=== PATIENT | female | born 1955 | race Caucasian/White ===

== ENCOUNTER → 2017-01-04 | Outpatient (CLI) | payer BC, MEDICAID ==
[2017-01-04 17:57] LABS: BASOPHILS % (AUTO) 0.4 %; EOSINOPHILS # (AUTO) 0.1 10^3/uL (0.0-0.7); EOSINOPHILS % (AUTO) 1.5 %; HCT - HEMATOCRIT 43.5 % (37.0-47.0); HGB - HEMOGLOBIN 14.3 g/dL (12.0-16.0); LYMPHOCYTES # (AUTO) 2.2 10^3/uL (1.5-3.5); LYMPHOCYTES % (AUTO) 33.2 %; MEAN CORPUSCULAR HEMOGLOBIN 31.2 pg (27.0-31.0); MEAN CORPUSCULAR HGB CONC 32.9 g/dL (32.0-36.0); MEAN CORPUSCULAR VOLUME 94.9 fL (81.0-99.0); MEAN PLATELET VOLUME 7.7 fL (7.9-10.8); MONOCYTES # (AUTO) 0.7 10^3/uL (0.0-1.0); MONOCYTES % (AUTO) 10.4 %; NEUTROPHILS # (AUTO) 3.6 10^3/uL (1.5-6.6); NEUTROPHILS % (AUTO) 54.5 %; NUCLEATED RED BLOOD CELLS AUTO 0.1 /100WBC; RED BLOOD COUNT 4.59 10^6/uL (4.20-5.40); RED CELL DISTRIBUTION WIDTH 13.1 % (12.0-15.0); UNCORRECTED WHITE BLOOD COUNT 6.7 x10^3/uL; WHITE BLOOD COUNT 6.7 x10^3/uL (4.8-10.8)
[2017-01-04 18:17] LABS: ALBUMIN/GLOBULIN RATIO 1.3 (1.0-2.2); BILIRUBIN,TOTAL 0.6 mg/dL (0.2-1.0); BUN - BLOOD UREA NITROGEN 10 mg/dL (6-20); CALCIUM 9.5 mg/dL (8.5-10.3); CARBON DIOXIDE - CO2 25 mmol/L (21-32); CHLORIDE 105 mmol/L (101-111); CHOL/HDL RATIO 3.1 (<4.4); CHOLESTEROL 193 mg/dL; CREATININE 0.8 mg/dL (0.4-1.0); GFR - MDRD 73 (>89); GLUCOSE 95 mg/dL (70-100); HDL CHOLESTEROL 63 mg/dL; LDL/HDL RATIO 1.6 (<4.4); POTASSIUM 4.1 mmol/L (3.5-5.0); SODIUM 140 mmol/L (135-145); TOTAL PROTEIN 6.8 g/dL (6.7-8.2); TRIGLYCERIDES 151 mg/dL; VLDL CHOLESTEROL 30 mg/dL
[2017-01-04 21:26] LABS: HEMOGLOBIN A1C 0.69 g/dL
== END ==
LOC: LAB.S 09:39
PROVIDERS: ATTEND Nurse Practitioner Family
DX: I10 Essential (primary) hypertension (principal); E78.5 Hyperlipidemia, unspecified; N28.9 Disorder of kidney and ureter, unspecified; R73.01 Impaired fasting glucose
CPT/HCPCS: 36415; 80053; 80061; 83036; 84443; 85025

== ENCOUNTER 2017-02-04 08:52 | Outpatient (CLI) | payer MEDICAID ==
--- NOTE | 2017-02-04 10:52 | Ultrasound Report ---
RIGHT BREAST ULTRASOUND: 02/04/2017 CLINICAL INDICATION: Circumscribed nodule right lower inner quadrant. TECHNIQUE: Real-time scanning was performed with corporate sales representative static images obtained. FINDINGS: Ultrasound of the right lower inner quadrant was performed. At the 4 o'clock position, ap proximately 8 cm from the nipple, there is a circumscribed, hypoechoic nodule, measuring 1.8 x 1.5 x 0.9 cm. It demonstrates posterior acoustic enhancement and no internal vascularity. The imaging chula racteristics are compatible with a fibroadenoma. Options of six-month followup or core needle biopsy were discussed with the patient, and she agreed to six-month followup. 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 RECOMMENDATION: Diagnostic right mammogram and ultrasound in six months, to assure stability. BIRADS CATEGORY 3 - PROBABLE BENIGN FINDINGS. JOB #: [id number] EXT JOB #:[id number]
--- NOTE | 2017-02-04 17:34 | Mammography Report ---
DIGITAL DIAGNOSTIC RIGHT MAMMOGRAM: 02/04/2017 CLINICAL INDICATION: Nodule right lower inner quadrant. COMPARISON: 01/14/2017 TECHNIQUE: Right true lateral and spot compression views. The right breast again demonstrates fatty replacement. The nodular opacity in the right lower inner central breast persists, measuring approximately 2 cm. No associated calcifications are seen. Zac gimenez also refer to right breast ultrasound of the same day. IMPRESSION: PROBABLE BENIGN FINDINGS, WITH A LIKELY FIBROADENOMA ON ULTRASOUND CORRELATING WITH THE MAMMOGRAPHIC ABNORMALITY. RECOMMENDATION: DIAGNOSTIC RIGHT MAMMOGRAM AND ULTRASOUND IN SIX MONTHS. BIRADS CATEGORY: 3, PROBABLE BENIGN FINDINGS. STANDARD QUALIFYING STATEMENTS 1. This examination was reviewed with the aid of Computed-Aided Detection (CAD). 2. A negative or benign imaging report should not delay biopsy if clinically suspicious findings are present. Consider surgical consultation if warranted. More than 5% of cancers are not identified b y imaging. 3. Dense breasts may obscure an underlying neoplasm. :9 JOB #: [id number] EXT JOB #:[id number]
== END 2017-02-04 08:53 | disposition home or self-care (01) ==
LOC: DI 08:52
PROVIDERS: ATTEND Nurse Practitioner Family
DX: N63.14 Unspecified lump in the right breast, lower inner quadrant (principal)
CPT/HCPCS: 76642

== ENCOUNTER 2017-09-07 09:10 | Outpatient (CLI) | payer MEDICAID ==
--- NOTE | 2017-09-07 12:23 | Mammography Report ---
Procedure Date: 09/07/2017 Accession Number: [id number] / [id number] Procedure: RAJESH - Diagnostic Dig RT CPT Code: FULL RESULT: EXAM: UNILATERAL RIGHT MAMMOGRAM AND RIGHT BREAST ULTRASOUND DATE: 09/07/2017 9:42 AM CLINICAL HISTORY: Follow-up probable fibroadenoma. TECHNIQUE: Unilateral right CC, MLO, and true lateral mammographic projections. Real-time scanning by the silk top hat body maker was saved static images reviewed. COMPARISON: 02/04/2017 right breast additional views and right breast ultrasound. FINDINGS: Right mammogram: There are scattered fibroglandular densities. The large nodule, presumed fibroadenoma, in the 4:00 position right breast persists on additional views, unchanged in appearance compared with priors. A second subcentimeter nodular density in the 9:00 position is also unchanged in appearance. Right breast ultrasound: Ultrasound examination of the right breast 4:00 position 8 cm from the nipple shows a stable appearance to the well circumscribed avascular hypoechoic nodule with posterior acoustic enhancement measuring 1.7 x 1.3 x .9 cm. IMPRESSION: Probably benign findings right breast. RECOMMENDATION: Six-month follow-up bilateral mammogram and right breast ultrasound. BIRADS CATEGORY 3: Probably benign STANDARD QUALIFYING STATEMENTS: 1. This examination was reviewed with the aid of Computer-Aided Detection (CAD). 2. A negative or benign imaging report should not delay biopsy if clinically suspicious findings are present. Consider surgical consultation if warrented. More than 5% of cancers are not identified by imaging. 3. Dense breasts may obscure an underlying neoplasm.
== END 2017-09-07 09:11 | disposition home or self-care (01) ==
LOC: DI 09:10
PROVIDERS: ATTEND Nurse Practitioner Family
DX: R92.8 Other abnormal and inconclusive findings on diagnostic imaging of breast (principal); N63.14 Unspecified lump in the right breast, lower inner quadrant
CPT/HCPCS: 76642

== ENCOUNTER 2018-05-16 09:12 | Outpatient (CLI) | payer MEDICAID ==
[2018-05-16 18:35] LABS: BASOPHILS % (AUTO) 0.3 %; EOSINOPHILS # (AUTO) 0.1 10^3/uL (0.0-0.7); EOSINOPHILS % (AUTO) 1.8 %; HGB - HEMOGLOBIN 14.2 g/dL (12.0-16.0); LYMPHOCYTES # (AUTO) 2.1 10^3/uL (1.5-3.5); LYMPHOCYTES % (AUTO) 31.3 %; MEAN CORPUSCULAR HGB CONC 33.3 g/dL (32.0-36.0); MEAN CORPUSCULAR VOLUME 96.1 fL (81.0-99.0); MEAN PLATELET VOLUME 7.6 fL (7.9-10.8); MONOCYTES # (AUTO) 0.7 10^3/uL (0.0-1.0); MONOCYTES % (AUTO) 9.9 %; NEUTROPHILS # (AUTO) 3.8 10^3/uL (1.5-6.6); NEUTROPHILS % (AUTO) 56.7 %; PLT - PLATELET COUNT 281 10^3/uL (130-450); RED BLOOD COUNT 4.45 10^6/uL (4.20-5.40); RED CELL DISTRIBUTION WIDTH 12.7 % (12.0-15.0); WHITE BLOOD COUNT 6.8 x10^3/uL (4.8-10.8)
[2018-05-16 18:49] LABS: ALBUMIN/GLOBULIN RATIO 1.1 (1.0-2.2); ALKALINE PHOSPHATASE 71 IU/L (42-121); ALT ALANINE AMINOTRANSFERASE 28 IU/L (10-60); AST ASPARTATE AMINOTRANSFERASE 33 IU/L (10-42); BILIRUBIN,TOTAL 0.9 mg/dL (0.2-1.0); BUN - BLOOD UREA NITROGEN 16 mg/dL (6-20); CALCIUM 9.1 mg/dL (8.5-10.3); CARBON DIOXIDE - CO2 24 mmol/L (21-32); CHLORIDE 105 mmol/L (101-111); CHOL/HDL RATIO 2.6 (<4.4); CHOLESTEROL 193 mg/dL; CREATININE 0.8 mg/dL (0.4-1.0); GFR - MDRD 72 (>89); GLUCOSE 106 mg/dL (70-100); HDL CHOLESTEROL 74 mg/dL; LDL CHOLESTEROL,CALCULATED 98 mg/dL; LDL/HDL RATIO 1.3 (<4.4); SODIUM 137 mmol/L (135-145); TOTAL PROTEIN 7.5 g/dL (6.7-8.2); VLDL CHOLESTEROL 21 mg/dL
[2018-05-16 20:41] LABS: HB2 TOTAL 15.6 g/dL; HEMOGLOBIN A1C 0.62 g/dL; HEMOGLOBIN A1C % 5.8 % (4.6-6.2)
== END 2018-05-16 09:13 | disposition home or self-care (01) ==
LOC: LAB.F 09:12
PROVIDERS: ATTEND Nurse Practitioner Family
DX: I10 Essential (primary) hypertension (principal); E78.5 Hyperlipidemia, unspecified; R73.01 Impaired fasting glucose; Z12.11 Encounter for screening for malignant neoplasm of colon
CPT/HCPCS: 36415; 80053; 80061; 83036; 83721; 84443; 85025

== ENCOUNTER 2018-05-26 10:35 | Outpatient (CLI) | payer MEDICAID ==
--- NOTE | 2018-05-26 14:34 | Mammography Report ---
Reason: 6 MO F/U - ABN MAMMO Procedure Date: 05/26/2018 Accession Number: [id number] / [id number] Procedure: RAJESH - Diagnostic Dig Bilat CPT Code: FULL RESULT: EXAM: Diagnostic Dig Bilat DATE: 05/26/2018 11:38 AM CLINICAL HISTORY: Diagnostic exam. Follow-up probable fibroadenoma. TECHNIQUE: Bilateral CC, MLO images are obtained. Right laterally exaggerated CC and ML images are obtained. COMPARISON: 09/07/2017 through 01/14/2017. FINDINGS: The breasts demonstrate diffuse fatty replacement bilaterally. The large nodule, presumed fibroadenoma, in the 4:00 position of the right breast is unchanged compared to priors. A second subcentimeter nodular density in the 9:00 position is also unchanged. These findings are therefore probably benign. IMPRESSION: Probable benign findings RECOMMENDATION: Recommend diagnostic right breast mammogram in 6 months. Annual screening mammography of the left breast. BIRADS CATEGORY 3 STANDARD QUALIFYING STATEMENTS: 1. This examination was not reviewed with the aid of Computer-Aided Detection (CAD). 2. A negative or benign imaging report should not delay biopsy if clinically suspicious findings are present. Consider surgical consultation if warrented. More than 5% of cancers are not identified by imaging. 3. Dense breasts may obscure an underlying neoplasm. 4. This examination was reviewed with the aid of 3D imaging (tomography).
== END 2018-05-26 10:36 | disposition home or self-care (01) ==
LOC: DI 10:35
PROVIDERS: ATTEND Nurse Practitioner Family
DX: R92.8 Other abnormal and inconclusive findings on diagnostic imaging of breast (principal)
CPT/HCPCS: 77062; 77066

== ENCOUNTER 2018-09-12 18:50 | Outpatient (CLI) | payer MEDICAID ==
--- NOTE | 2018-09-13 12:42 | Ultrasound Report ---
Reason: CAROTID ARTERY OCCLUSION,HYPERLIPIDEMIA,HTN Procedure Date: 09/12/2018 Accession Number: [id number] / [id number] Procedure: US - Carotid Doppler Complete CPT Code: FULL RESULT: EXAM: BILATERAL CAROTID AND VERTEBRAL ARTERY DUPLEX DOPPLER ULTRASOUND: EXAM DATE: 09/12/2018 07:16 PM CLINICAL HISTORY: Carotid artery occlusion, hyperlipidemia, HTN. COMPARISON: None. TECHNIQUE: Grayscale imaging, color Doppler, and duplex spectral Doppler were used to evaluate the carotid and vertebral arteries bilaterally. Static images were obtained. FINDINGS: A mild amount of echogenic irregular plaque seen throughout the right and left internal carotid systems, most pronounced at the bifurcations and visually less than 50% on grayscale ultrasound. Normal antegrade flow is present in bilateral vertebral arteries. The shadowing plaque occludes focal evaluation, particularly limited to the proximal right internal carotid artery. There is, however, no evidence of tardus parvus flow waveforms downstream of areas with limited visualization and distal ICA waveforms are within normal limits on both sides. VELOCITIES (cm/sec): Right CCA mid: PSV 108.1 cm/sec CCA dist: PSV 74.0 cm/sec ICA prox: PSV 56.2 cm/sec, EDV 18.6 cm/sec ICA mid: PSV 55.1 cm/sec, EDV 16.6 cm/sec ICA dist: PSV 51.3 cm/sec, EDV 18.8 cm/sec ECA: PSV 114.1 cm/sec Vert: PSV 43.5 cm/sec ICA/CCA: 0.5 Left CCA mid: PSV 71.7 cm/sec CCA dist: PSV 77.3 cm/sec ICA prox: PSV 54.4 cm/sec, EDV 19.5 cm/sec ICA mid: PSV 34.4 cm/sec, EDV 13.3 cm/sec ICA dist: PSV 30.5 cm/sec, EDV 12.1 cm/sec ECA: PSV 38.5 cm/sec Vert: PSV 49.6 cm/sec ICA/CCA: 0.7 ICA diameter stenosis: Right: <50% by velocity and <70% by NASCET criteria. Left: <50% by velocity and <70% by NASCET criteria. IMPRESSION: 1. Subjectively mild bilateral carotid artery plaquing. 2. In the right carotid artery there are no elevated carotid artery velocities to suggest hemodynamically significant stenosis. 3. In the left carotid artery there are no elevated carotid artery velocities to suggest hemodynamically significant stenosis. 4. Normal antegrade flow is present in bilateral vertebral arteries. General Recommendations: Stenosis =50% ICA - Follow-up ultrasound 6-12 months Stenosis <50% ICA - High Risk Patient with plaque - Follow-up ultrasound 1-2 years Normal Study but High Risk Patient - Follow-up ultrasound 3-5 years Management recommendations and diagnostic criteria are based on current IAC endorsed standards in Carotid Artery Stenosis: Grayscale and Doppler Ultrasound Diagnosis. Validated velocity measurements with angiographic measurements and velocity criteria are extrapolated from diameter data as defined by the Society of Radiologists in Ultrasound Consensus Conference Radiology 2003; 229;340-346. RADIA
== END 2018-09-12 18:51 | disposition home or self-care (01) ==
LOC: DI 18:50
PROVIDERS: ATTEND Physician Assistant Medical
DX: I65.23 Occlusion and stenosis of bilateral carotid arteries (principal); E78.5 Hyperlipidemia, unspecified; I10 Essential (primary) hypertension
CPT/HCPCS: 93880

== ENCOUNTER 2019-11-14 08:03 | Outpatient (CLI) | payer MEDICAID ==
[2019-11-14 15:41] LABS: BASOPHILS % (AUTO) 0.6 %; EOSINOPHILS # (AUTO) 0.1 10^3/uL (0.0-0.7); EOSINOPHILS % (AUTO) 2.4 %; HGB - HEMOGLOBIN 14.6 g/dL (12.0-16.0); LYMPHOCYTES # (AUTO) 1.9 10^3/uL (1.5-3.5); MEAN CORPUSCULAR HGB CONC 31.9 g/dL (32.0-36.0); MEAN CORPUSCULAR VOLUME 97.2 fL (81.0-99.0); MEAN PLATELET VOLUME 9.7 fL (7.9-10.8); MONOCYTES # (AUTO) 0.5 10^3/uL (0.0-1.0); MONOCYTES % (AUTO) 9.7 %; NEUTROPHILS # (AUTO) 2.9 10^3/uL (1.5-6.6); NEUTROPHILS % (AUTO) 52.9 %; PLT - PLATELET COUNT 263 10^3/uL (130-450); RED BLOOD COUNT 4.71 10^6/uL (4.20-5.40); RED CELL DISTRIBUTION WIDTH 12.4 % (12.0-15.0); WHITE BLOOD COUNT 5.4 x10^3/uL (4.8-10.8)
[2019-11-14 16:03] LABS: ALBUMIN 3.9 g/dL (3.2-5.5); ALBUMIN/GLOBULIN RATIO 1.1 (1.0-2.2); ALKALINE PHOSPHATASE 84 IU/L (42-121); ALT ALANINE AMINOTRANSFERASE 19 IU/L (10-60); AST ASPARTATE AMINOTRANSFERASE 26 IU/L (10-42); BILIRUBIN,TOTAL 0.8 mg/dL (0.2-1.0); BUN - BLOOD UREA NITROGEN 11 mg/dL (6-20); CALCIUM 9.5 mg/dL (8.5-10.3); CARBON DIOXIDE - CO2 25 mmol/L (21-32); CHLORIDE 108 mmol/L (101-111); CHOL/HDL RATIO 2.7 (<4.4); CHOLESTEROL 187 mg/dL; CREATININE 0.9 mg/dL (0.4-1.0); GLUCOSE 111 mg/dL (70-100); HDL CHOLESTEROL 69 mg/dL; LDL CHOLESTEROL,CALCULATED 92 mg/dL; LDL/HDL RATIO 1.3 (<4.4); SODIUM 141 mmol/L (135-145); TOTAL PROTEIN 7.3 g/dL (6.7-8.2); VLDL CHOLESTEROL 26 mg/dL
== END 2019-11-14 08:04 | disposition home or self-care (01) ==
LOC: LAB.S 08:03
PROVIDERS: ATTEND Registered Nurse
DX: I10 Essential (primary) hypertension (principal); N28.9 Disorder of kidney and ureter, unspecified; E78.5 Hyperlipidemia, unspecified; R73.01 Impaired fasting glucose
CPT/HCPCS: 36415; 80053; 80061; 83036; 83721; 84443; 85025

== ENCOUNTER 2020-01-04 12:36 | Outpatient (CLI) | payer MEDICAID ==
--- NOTE | 2020-01-08 16:12 | Mammography Report ---
BILATERAL DIGITAL DIAGNOSTIC MAMMOGRAM 3D/2D: 01/04/2020 CLINICAL: Patient returns for short term follow-up of a probably benign mass in the right breast. Comparison is made to exams dated: 05/26/2018 mammogram, 09/07/2017 mammogram, 09/07/2017 ultrasound, ultrasound, 02/04/2017 mammogram, and 01/14/2017 mammogram - [facility]. There are scattered fibroglandular elements in both breasts. There is a stable oval equal density mass with an indistinct and circumscribed margin in the right br east at 4 o'clock posterior depth. No other significant masses, calcifications, or other findings are seen in either breast. IMPRESSION: INCOMPLETE: NEEDS ADDITIONAL IMAGING EVALUATION The stable oval equal density mass in the right breast is indeterminate. An ultrasound is recommende d. This exam was interpreted at Station ID: [id number]. NOTE: For mammograms, a report in lay terms will be sent to the patient. Approximately 15% of breast malignancies will not be visualized mammographically. In the management of a palpable breast mass, a negative mammogram must not discourage biopsy of a clinically suspicious lesion. Electronically Signed By: Benji pisano/ander:01/04/2020 13:48:07 ACR BI-RADS Category 0: Incomplete 3340F PARENCHYMAL PATTERN: (A) - The breast(s) demonstrate(s) scattered fibroglandular densities. BI-RADS CATEGORY: (0) - 0 Ultrasound [id number] Immediate follow-up LATERALITY: (B)
--- NOTE | 2020-01-08 16:12 | Ultrasound Report ---
LIMITED ULTRASOUND OF RIGHT BREAST AND AXILLA: 01/04/2020 CLINICAL: Patient returns for short term follow-up of a probably benign mass in the right breast. Comparison is made to exams dated: 01/04/2020 mammogram, 05/26/2018 mammogram, 09/07/2017 ultrasound, mammogram, 02/04/2017 ultrasound, and 02/04/2017 mammogram - [facility]. Color flow and real-time ultrasound of the right breast 3 o'clock, and axilla regions were performed on the areas of interest. There is a stable benign 1.3 cm x 0.9 cm x 1.7 cm oval mass with a circumscribed margin in the right breast at 3 o'clock middle depth 8 cm from the nipple. This oval mass is hypoechoic with a well-defi adeola boundary. This correlates with mammography findings. Color flow imaging demonstrates that there is no increase in vascularity. IMPRESSION: BENIGN There is no sonographic evidence of malignancy. The stable 1.3 cm x 0.9 cm x 1.7 cm oval mass in the right breast likely represents a fibroadenoma an d is benign given stability compared to prior studies dating back to 2017. A 1 year screening mammogram is recommended. This exam was interpreted at Station ID: [id number]. Electronically Signed By: Benji Hoff M.D. ddp/:01/04/2020 15:00:30 Ultrasound BI-RADS: 2 Benign BI-RADS CATEGORY: (2) - 2 RECOMMENDATION: (ANNUAL) - Recommend routine annual screening mammography. [id number] 1 year screening LATERALITY: (B)
== END 2020-01-04 12:37 | disposition home or self-care (01) ==
LOC: DI 12:36
PROVIDERS: ATTEND Registered Nurse
DX: R92.8 Other abnormal and inconclusive findings on diagnostic imaging of breast (principal); N63.12 Unspecified lump in the right breast, upper inner quadrant
CPT/HCPCS: 76642; 77066

== ENCOUNTER 2020-12-26 08:23 | Outpatient (CLI) | payer MEDICAID ==
[2020-12-26 14:57] LABS: BASOPHILS % (AUTO) 0.6 %; EOSINOPHILS # (AUTO) 0.2 10^3/uL (0.0-0.7); EOSINOPHILS % (AUTO) 2.3 %; HCT - HEMATOCRIT 43.5 % (37.0-47.0); HGB - HEMOGLOBIN 14.2 g/dL (12.0-16.0); LYMPHOCYTES # (AUTO) 2.2 10^3/uL (1.5-3.5); LYMPHOCYTES % (AUTO) 32.9 %; MEAN CORPUSCULAR HEMOGLOBIN 31.5 pg (27.0-31.0); MEAN CORPUSCULAR HGB CONC 32.6 g/dL (32.0-36.0); MEAN CORPUSCULAR VOLUME 96.5 fL (81.0-99.0); MEAN PLATELET VOLUME 9.3 fL (7.9-10.8); MONOCYTES # (AUTO) 0.7 10^3/uL (0.0-1.0); MONOCYTES % (AUTO) 10.5 %; NEUTROPHILS # (AUTO) 3.5 10^3/uL (1.5-6.6); NEUTROPHILS % (AUTO) 53.4 %; PLT - PLATELET COUNT 301 10^3/uL (130-450); RED BLOOD COUNT 4.51 10^6/uL (4.20-5.40); RED CELL DISTRIBUTION WIDTH 12.3 % (12.0-15.0); WHITE BLOOD COUNT 6.6 x10^3/uL (4.8-10.8)
[2020-12-26 15:27] LABS: CHOL/HDL RATIO 2.6 (<4.4); CHOLESTEROL 187 mg/dL; HDL CHOLESTEROL 71 mg/dL; LDL CHOLESTEROL,CALCULATED 94 mg/dL; LDL/HDL RATIO 1.3 (<4.4); TRIGLYCERIDES 111 mg/dL; VLDL CHOLESTEROL 22 mg/dL
== END 2020-12-26 08:24 | disposition home or self-care (01) ==
LOC: LAB.S 08:23
PROVIDERS: ATTEND Internal Medicine
DX: E78.5 Hyperlipidemia, unspecified (principal); I10 Essential (primary) hypertension; R73.01 Impaired fasting glucose
CPT/HCPCS: 36415; 80061; 83721; 85025

== ENCOUNTER 2021-05-07 08:00 | Outpatient (CLI) | payer MEDICARE, MEDICAID ==
[2021-05-07 15:29] LABS: BASOPHILS % (AUTO) 0.5 %; EOSINOPHILS # (AUTO) 0.2 10^3/uL (0.0-0.7); EOSINOPHILS % (AUTO) 2.5 %; HCT - HEMATOCRIT 42.5 % (37.0-47.0); LYMPHOCYTES # (AUTO) 1.4 10^3/uL (1.5-3.5); LYMPHOCYTES % (AUTO) 21.8 %; MEAN CORPUSCULAR HEMOGLOBIN 31.5 pg (27.0-31.0); MEAN CORPUSCULAR HGB CONC 32.9 g/dL (32.0-36.0); MEAN CORPUSCULAR VOLUME 95.5 fL (81.0-99.0); MEAN PLATELET VOLUME 9.2 fL (7.9-10.8); MONOCYTES # (AUTO) 0.5 10^3/uL (0.0-1.0); MONOCYTES % (AUTO) 7.9 %; NEUTROPHILS # (AUTO) 4.3 10^3/uL (1.5-6.6); PLT - PLATELET COUNT 272 10^3/uL (130-450); RED BLOOD COUNT 4.45 10^6/uL (4.20-5.40); RED CELL DISTRIBUTION WIDTH 12.3 % (12.0-15.0); WHITE BLOOD COUNT 6.4 x10^3/uL (4.8-10.8)
[2021-05-07 15:40] LABS: SLIDE REVIEW? Indicated
[2021-05-07 15:58] LABS: ALBUMIN 3.9 g/dL (3.2-5.5); ALBUMIN/GLOBULIN RATIO 1.2 (1.0-2.2); BILIRUBIN,TOTAL 0.5 mg/dL (0.2-1.0); CALCIUM 9.2 mg/dL (8.5-10.3); CREATININE 0.7 mg/dL (0.4-1.0); POTASSIUM 4.2 mmol/L (3.5-5.0); TOTAL PROTEIN 7.1 g/dL (6.7-8.2)
[2021-05-07 17:16] LABS: DIFFERENTIAL COMMENT MANUAL=AUTO DIFF; PLATELET ESTIMATE, MANUAL NORMAL (130-450,000) (NORMAL); PLATELET MORPHOLOGY NORMAL APPEARANCE (NORMAL); RBC MORPHOLOGY (MULTIPLE) NORMAL APPEARANCE (NORMAL); WBC MORPHOLOGY (MULTIPLE) NORMAL APPEARANCE (NORMAL)
[2021-05-07 20:17] LABS: ESTIMATED AVERAGE GLUCOSE 126 mg/dL (70-100)
== END 2021-05-07 23:59 ==
LOC: LAB.S 08:00
PROVIDERS: ATTEND Physician Assistant Medical
DX: K52.9 Noninfective gastroenteritis and colitis, unspecified (principal); R11.10 Vomiting, unspecified; R73.03 Prediabetes; R73.01 Impaired fasting glucose; I10 Essential (primary) hypertension; Z20.822 Contact with and (suspected) exposure to COVID-19
CPT/HCPCS: 36415; 80053; 83036; 85025; U0004

== ENCOUNTER 2022-05-11 07:30 | Outpatient (CLI) | payer MEDICARE, MEDICAID ==
[2022-05-11 14:25] LABS: BASOPHILS % (AUTO) 0.5 %; EOSINOPHILS # (AUTO) 0.1 10^3/uL (0.0-0.7); EOSINOPHILS % (AUTO) 2.3 %; HGB - HEMOGLOBIN 13.1 g/dL (12.0-16.0); LYMPHOCYTES # (AUTO) 2.2 10^3/uL (1.5-3.5); LYMPHOCYTES % (AUTO) 38.5 %; MEAN CORPUSCULAR HEMOGLOBIN 31.1 pg (27.0-31.0); MEAN CORPUSCULAR VOLUME 97.4 fL (81.0-99.0); MEAN PLATELET VOLUME 9.1 fL (7.9-10.8); MONOCYTES # (AUTO) 0.6 10^3/uL (0.0-1.0); MONOCYTES % (AUTO) 11.1 %; NEUTROPHILS # (AUTO) 2.7 10^3/uL (1.5-6.6); NEUTROPHILS % (AUTO) 47.4 %; PLT - PLATELET COUNT 256 10^3/uL (130-450); RED BLOOD COUNT 4.21 10^6/uL (4.20-5.40); RED CELL DISTRIBUTION WIDTH 12.4 % (12.0-15.0); WHITE BLOOD COUNT 5.7 x10^3/uL (4.8-10.8)
[2022-05-11 15:30] LABS: THYROID STIMULATING HORMONE 1.93 uIU/mL (0.34-5.60)
[2022-05-11 15:37] LABS: ALBUMIN 3.7 g/dL (3.2-5.5); ALBUMIN/GLOBULIN RATIO 1.2 (1.0-2.2); ALKALINE PHOSPHATASE 72 IU/L (42-121); ALT ALANINE AMINOTRANSFERASE 18 IU/L (10-60); AST ASPARTATE AMINOTRANSFERASE 24 IU/L (10-42); BILIRUBIN,TOTAL 0.5 mg/dL (0.2-1.0); BUN - BLOOD UREA NITROGEN 11 mg/dL (6-20); CALCIUM 10.3 mg/dL (8.5-10.3); CARBON DIOXIDE - CO2 26 mmol/L (21-32); CHLORIDE 106 mmol/L (101-111); CHOL/HDL RATIO 2.7 (<4.4); CHOLESTEROL 199 mg/dL; CREATININE 0.7 mg/dL (0.4-1.0); GFR - MDRD 83 (>89); GLUCOSE 111 mg/dL (70-100); HDL CHOLESTEROL 75 mg/dL; LDL CHOLESTEROL,CALCULATED 108 mg/dL; LDL/HDL RATIO 1.4 (<4.4); POTASSIUM 4.6 mmol/L (3.5-5.0); SODIUM 141 mmol/L (135-145); TOTAL PROTEIN 6.9 g/dL (6.7-8.2); TRIGLYCERIDES 78 mg/dL; VLDL CHOLESTEROL 16 mg/dL
== END 2022-05-11 07:31 | disposition home or self-care (01) ==
LOC: LAB.S 07:30
PROVIDERS: ATTEND Registered Nurse
DX: I10 Essential (primary) hypertension (principal); N28.9 Disorder of kidney and ureter, unspecified; R73.01 Impaired fasting glucose; E78.5 Hyperlipidemia, unspecified; Z13.29 Encounter for screening for other suspected endocrine disorder
CPT/HCPCS: 36415; 80053; 80061; 83721; 84443; 85025

== ENCOUNTER 2023-06-16 08:32 | Outpatient (CLI) | payer MEDICARE, MEDICAID ==
[2023-06-16 14:42] LABS: BASOPHILS % (AUTO) 0.4 %; EOSINOPHILS # (AUTO) 0.2 10^3/uL (0.0-0.7); EOSINOPHILS % (AUTO) 2.6 %; HCT - HEMATOCRIT 41.5 % (37.0-47.0); HGB - HEMOGLOBIN 13.1 g/dL (12.0-16.0); LYMPHOCYTES # (AUTO) 2.4 10^3/uL (1.5-3.5); MEAN CORPUSCULAR HEMOGLOBIN 30.5 pg (27.0-31.0); MEAN CORPUSCULAR HGB CONC 31.6 g/dL (32.0-36.0); MEAN CORPUSCULAR VOLUME 96.7 fL (81.0-99.0); MEAN PLATELET VOLUME 9.5 fL (7.9-10.8); MONOCYTES # (AUTO) 0.7 10^3/uL (0.0-1.0); MONOCYTES % (AUTO) 10.5 %; NEUTROPHILS # (AUTO) 3.5 10^3/uL (1.5-6.6); NEUTROPHILS % (AUTO) 51.4 %; PLT - PLATELET COUNT 313 10^3/uL (130-450); RED BLOOD COUNT 4.29 10^6/uL (4.20-5.40); RED CELL DISTRIBUTION WIDTH 12.6 % (12.0-15.0); WHITE BLOOD COUNT 6.9 x10^3/uL (4.8-10.8)
[2023-06-16 15:07] LABS: ALBUMIN 4.1 g/dL (3.2-5.5); ALBUMIN/GLOBULIN RATIO 1.5 (1.0-2.2); ALKALINE PHOSPHATASE 77 IU/L (42-121); ALT ALANINE AMINOTRANSFERASE 16 IU/L (10-60); AST ASPARTATE AMINOTRANSFERASE 24 IU/L (10-42); BILIRUBIN,TOTAL 0.5 mg/dL (0.2-1.0); BUN - BLOOD UREA NITROGEN 8 mg/dL (6-20); CALCIUM 9.7 mg/dL (8.5-10.3); CARBON DIOXIDE - CO2 27 mmol/L (21-32); CHLORIDE 104 mmol/L (101-111); CHOL/HDL RATIO 2.7 (<4.4); CHOLESTEROL 186 mg/dL; CREATININE 0.7 mg/dL (0.6-1.3); GFR - MDRD 83 (>89); GLUCOSE 101 mg/dL (74-104); HDL CHOLESTEROL 68 mg/dL; LDL CHOLESTEROL,CALCULATED 90 mg/dL; LDL/HDL RATIO 1.3 (<4.4); POTASSIUM 4.5 mmol/L (3.5-4.5); SODIUM 136 mmol/L (135-145); TOTAL PROTEIN 6.8 g/dL (6.4-8.9); TRIGLYCERIDES 139 mg/dL (48-352); VLDL CHOLESTEROL 28 mg/dL
== END 2023-06-16 08:33 | disposition home or self-care (01) ==
LOC: LAB.S 08:32
PROVIDERS: ATTEND Registered Nurse
DX: Z13.220 Encounter for screening for lipoid disorders (principal); Z13.29 Encounter for screening for other suspected endocrine disorder; Z79.899 Other long term (current) drug therapy
CPT/HCPCS: 36415; 80053; 80061; 83721; 84443; 85025

== ENCOUNTER 2023-08-03 16:45 | Outpatient (CLI) | payer MEDICARE ==
--- NOTE | 2023-08-04 13:13 | Ultrasound Report ---
PROCEDURE: Pelvic w/Transvaginal INDICATIONS: POST MENOPAUSAL BLEEDING TECHNIQUE: Real-time scanning was performed of the pelvic organs, with image documentation. Additional endovagi nal scanning was necessary due to incomplete visualization of the adnexal and endometrial structures by transabdominal scanning. COMPARISON: None FINDINGS: Uterus: 14.4 x 8.3 x 9.5 cm. This is enlarged for age. Endometrium measures 4 mm. Anteverted position ing. Multiple fibroids are seen, FIGO 2-5 fibroid measures 7.8 x 7.6 x 6.5 cm. The lower uterine segment i ntramural fibroid measures 5.2 x 5.3 cm. Calcifications are likely present. Ovaries: Not seen Other: No pathologic free fluid. IMPRESSION: Suboptimal sonographic windows due to large, possibly calcified fibroids. Endometrium measures 4 mm w here visualized, at the upper limit of normal. Consider MRI if further imaging is desired. Reviewed by: Marcos Martin MD on 08/04/2023 1:11 PM PDT Approved by: Marcos Martin MD on 08/04/2023 1:11 PM PDT Station ID: [id number]
== END 2023-08-03 16:46 | disposition home or self-care (01) ==
LOC: DI 16:45
PROVIDERS: ATTEND Obstetrics & Gynecology
DX: D25.1 Intramural leiomyoma of uterus (principal); D25.9 Leiomyoma of uterus, unspecified; N95.0 Postmenopausal bleeding

== ENCOUNTER 2023-08-26 15:18 | Outpatient (CLI) | payer MEDICARE ==
[~2023-08-26 15:18] MED LIST: GADOTERATE MEGLUMINE 10 MMOL/20 ML VIAL ONE; GADOTERATE MEGLUMINE 5 MMOL/10 ML VIAL ONE
[2023-08-26 16:36] LABS: CREATININE 0.8 mg/dL (0.6-1.3)
[2023-08-26] MEDS: GADOTERATE MEGLUMINE 10 MMOL/20 ML VIAL IVP ONE (17:51)
--- NOTE | 2023-08-27 09:28 | MRI Report ---
PROCEDURE: Pelvis W/WO INDICATIONS: FIBROIDS. Postmenopausal bleeding. CONTRAST: CLARISCAN 21.6 ML TECHNIQUE: Coronal ultra fast SE, sagittal breath-hold T2 FSE; axial T1 FSE with and without fat saturation thro ugh the pelvis. Optional long- and short-axis uterine nonbreath-hold T2 FSE through the uterus. Sag ittal or axial dynamic ultra fast GE during administration of contrast. Post-contrast axial or coron al ultra fast GE / 2-D spoiled GE with fat saturation from the iliac crests to the symphysis. Option al diffusion weighted imaging and ADC may be performed. COMPARISON: Ultrasound 08/02/2013 FINDINGS: Image quality: Excellent. Uterus: Uterus is normal in size. FIGO type 4 uterine fibroid with enhancement along the left side o f the mid to upper uterine segment measuring 7.4 x 9.4 x 10.4 cm. The junctional zone is expanded, me asuring 30 mm. There are irregular, enhancing components within the endometrium, with questionable ea rly invasion of the myometrium at the fundus (series 14, image 73). Adnexa: Both ovaries are normal in size, without suspicious cystic or solid lesions. Urinary system: Bladder wall is normal in thickness. Distal ureters are non distended. Urethra bev ears normal in morphology. Nodes and vessels: No pelvic or inguinal adenopathy by size criteria. Iliac vessels are normal in s ize. Bowel and peritoneum: No pathologic free pelvic fluid. Inferior colon and small bowel loops are nor mal in caliber. Soft tissues: No inguinal hernias. No findings of pelvic floor incompetence in the absence of provo cation. Bones: Marrow demonstrates normal overall signal. IMPRESSION: Expansion of the endometrium with heterogeneous enhancing material. This may demonstrate early invasi on into the myometrium. Differential favors malignancy over hypertrophy. Recommend tissue sampling. No pelvic adenopathy. Viable intramural fibroid measuring 7.4 x 9.4 x 10.4 cm. Reviewed by: Yossi Self MD on 08/27/2023 9:27 AM PDT Approved by: Yossi Self MD on 08/27/2023 9:27 AM PDT Station ID: [id number]
== END 2023-08-26 15:19 | disposition home or self-care (01) ==
LOC: DI 15:18
PROVIDERS: ATTEND Obstetrics & Gynecology
DX: D25.1 Intramural leiomyoma of uterus (principal); R93.89 Abnormal findings on diagnostic imaging of other specified body structures
CPT/HCPCS: 36415; 72197; 82565; A9575

== ENCOUNTER 2023-09-28 10:33 | Day surgery (SDC) | payer MEDICARE ==
[2023-09-28] MEDS ORDERED: PROPOFOL 200 MG/20 ML VIAL IVP ONE (11:03)
[2023-09-28] MEDS ORDERED: LIDOCAINE-PF 2% 10 ML AMP SUBQ ONE (11:03)
[2023-09-28] MEDS ORDERED: fentaNYL 100 MCG/2 ML VIAL ONE (11:04)
[2023-09-28] MEDS: LACTATED RINGERS 1,000 ML IV ONE ×2 (11:12→12:54)
[2023-09-28 11:18] LABS: BASOPHILS % (AUTO) 0.4 %; EOSINOPHILS % (AUTO) 0.1 %; HCT - HEMATOCRIT 40.5 % (37.0-47.0); HGB - HEMOGLOBIN 13.6 g/dL (12.0-16.0); LYMPHOCYTES # (AUTO) 2.6 10^3/uL (1.5-3.5); LYMPHOCYTES % (AUTO) 37.2 %; MEAN CORPUSCULAR HEMOGLOBIN 31.3 pg (27.0-31.0); MEAN CORPUSCULAR HGB CONC 33.6 g/dL (32.0-36.0); MEAN CORPUSCULAR VOLUME 93.1 fL (81.0-99.0); MEAN PLATELET VOLUME 8.9 fL (7.9-10.8); MONOCYTES # (AUTO) 0.6 10^3/uL (0.0-1.0); NEUTROPHILS # (AUTO) 3.7 10^3/uL (1.5-6.6); NEUTROPHILS % (AUTO) 53.2 %; PLT - PLATELET COUNT 230 10^3/uL (130-450); RED BLOOD COUNT 4.35 10^6/uL (4.20-5.40); RED CELL DISTRIBUTION WIDTH 12.1 % (12.0-15.0)
[2023-09-28] MEDS ORDERED: ePHEDrine 50 MG/ML VIAL IVP PRN (11:29)
[2023-09-28] MEDS ORDERED: fentaNYL 100 MCG/2 ML VIAL IVP PRN (11:29)
[2023-09-28] MEDS ORDERED: ATROPINE ABBOJECT 1 MG/10 ML SYRINGE IVP PRN (11:29)
[2023-09-28] MEDS ORDERED: ONDANSETRON 4 MG/2 ML VIAL IVP PRN (11:29)
[2023-09-28] MEDS ORDERED: NALOXONE 0.4 MG/ML VIAL IVP PRN (11:29)
[2023-09-28] MEDS ORDERED: MORPHINE 2 MG/ML CARPUJECT IVP PRN (11:29)
[2023-09-28] MEDS ORDERED: HYDROmorphone 0.5 MG/0.5 ML SYRINGE IVP PRN (11:29)
[2023-09-28] MEDS: SCOPOLAMINE PATCH TOP SCH (11:30)
--- NOTE | 2023-09-28 11:32 | ANESTHESIA ---
Pre-Anesthesia VS, & Labs - Diagnosis POST MENOPAUSAL BLEEDING - Procedure MYOSURE HYSTEROSCOPY D&C Vital Signs: Temp Pulse Resp BP Pulse Ox O2 Flow Rate 36.7 C 88 19 152/92 H 100 09/28/23 10:53 09/28/23 10:53 09/28/23 10:53 09/28/23 10:53 09/28/23 10:53 Height: 5 ft 7.5 in Weight (kg): 103.8 kg Body Mass Index: 35.3 BMI Classification: Obese - NPO >8 hours - Is Patient ?: No - Lab Results Current Lab Results: Laboratory Tests 09/28/23 11:11: POC Whole Bld Glucose 107 H 09/28/23 11:05: WBC 7.0, RBC 4.35, Hgb 13.6, Hct 40.5, MCV 93.1, MCH 31.3 H, MCHC 33.6, RDW 12.1, Plt Count 230, MPV 8.9, Neut # (Auto) 3.7, Lymph # (Auto) 2.6, Beadle # (Auto) 0.6, Eos # (Auto) 0.0, Baso # (Auto) 0.0, Absolute Nucleated RBC 0.00, Nucleated RBC % 0.0 Lab results reviewed: Yes Fish Bones: 09/28/23 11:05 Home Medications and Allergies Home Medications: Ambulatory Orders Amitriptyline [Elavil] 10 mg PO HS 09/17/23 Aspirin [Aspirin EC] 81 mg PO DAILY 09/17/23 Gabapentin [Neurontin] 300 mg PO TID 09/17/23 Glucos Sul 2Kcl/MSM/Chond/C/Mn [Glucosamine Chondroitin Cap] 1 each PO BID 09/17/23 Metoprolol Succinate 100 mg PO QPM 09/17/23 Multivitamin 1 each PO DAILY 09/17/23 Simvastatin [Zocor] 40 mg PO QPM 09/17/23 estradioL vaginal [Estrace vaginal] 1 applic VG ONCE 09/17/23 metFORMIN [Glucophage] 1,500 mg PO DAILY 09/17/23 Active Medications Scopolamine HBr (Scopolamine Patch) 1 patch TOP Q3D DA Amitriptyline [Elavil] 10 mg PO HS 09/17/23 Aspirin [Aspirin EC] 81 mg PO DAILY 09/17/23 Gabapentin [Neurontin] 300 mg PO TID 09/17/23 Glucos Sul 2Kcl/MSM/Chond/C/Mn [Glucosamine Chondroitin Cap] 1 each PO BID Metoprolol Succinate 100 mg PO QPM 09/17/23 Multivitamin 1 each PO DAILY 09/17/23 Simvastatin [Zocor] 40 mg PO QPM 09/17/23 estradioL vaginal [Estrace vaginal] 1 applic VG ONCE 09/17/23 metFORMIN [Glucophage] 1,500 mg PO DAILY 09/17/23 Allergies/Adverse Reactions: Allergies Allergy/AdvReac Type Severity Reaction Status Date / Time lisinopril AdvReac cough Verified 09/17/23 11:54 hot peppers Allergy chest Uncoded 09/17/23 11:54 tightness Anes History & Medical History - Anesthetic History Anesthesia Complications: reports: No previous complications Family history of Anesthesia Complications: Denies Family history of Malignant Hyperthermia: Denies - Medical History Cardiovascular: reports: Hypertension, High cholesterol Pulmonary: reports: None Gastrointestinal: reports: None Urinary: reports: None Neuro: reports: None Musculoskeletal: reports: Osteoarthritis, Chronic back pain Endocrine/Autoimmune: reports: Other Blood Disorders: reports: None Skin: reports: Other Smoking Status: Never smoker Psychosocial: reports: No issues indicated History of Cancer?: No - Surgical History Gynecologic: reports: section Results - EKG Results EKG Comparison: Reviewed EKG, Normal EKG Exam General: Alert, Oriented x3, Cooperative, No acute distress Dental: WNL Mouth Openin Fingerbreadth Neck Mobility: Normal Mallampati classification: I Thyromental Distance: less than 4 cm Respiratory: Lungs clear, Normal breath sounds, No respiratory distress, No accessory muscle use Cardiovascular: Regular rate, Normal S1, Normal S2, No murmurs Mental/Cognitive Status: Alert/Oriented X3, Normal for patient Cognitive Status: Within normal limits Plan Anesthesia Type: General Consent for Procedure(s) Verified and Reviewed: Yes Code Status: Attempt Resuscitation ASA classification: 3-Severe systemic disease Is this case an emergency?: No
[2023-09-28 11:33] LABS: ALBUMIN 4.3 g/dL (3.2-5.5); ALBUMIN/GLOBULIN RATIO 1.3 (1.0-2.2); BILIRUBIN,TOTAL 0.4 mg/dL (0.2-1.0); CALCIUM 9.6 mg/dL (8.5-10.3); CREATININE 0.7 mg/dL (0.6-1.3); POTASSIUM 4.8 mmol/L (3.5-4.5); TOTAL PROTEIN 7.7 g/dL (6.4-8.9)
[2023-09-28] MEDS ORDERED: ACETAMINOPHEN 1,000 MG/100 ML 1,000 MG/100 ML BAG IV ONE (11:52)
[2023-09-28] MEDS ORDERED: DEXAMETHASONE 4 MG/ML VIAL ONE (11:54)
[2023-09-28] MEDS ORDERED: ONDANSETRON 4 MG/2 ML VIAL ONE (11:54)
[2023-09-28] MEDS ORDERED: LACTATED RINGERS 1,000 ML IV SCH (12:00)
[2023-09-28] MEDS ORDERED: KETOROLAC 30 MG/ML VIAL ONE (12:27)
[2023-09-28] MEDS ORDERED: oxyCODONE 5 MG TABLET PO PRN (12:53)
[2023-09-28 13:41] VITALS: O2SAT 99
[2023-09-28 13:52] VITALS: BP 128/71
--- NOTE | 2023-09-28 14:09 | ANESTHESIA POST OP EVALUATION ---
Anesthesia Post Eval - Post Anesthesia Eval Vitals: Last Vital Signs Temp 36.6 C 09/28/23 13:48 Pulse 68 09/28/23 13:48 Resp 16 09/28/23 13:48 BP 128/71 09/28/23 13:48 Pulse Ox 99 09/28/23 13:48 O2 Flow Rate CV Function Including HR & BP: Stable Pain Control: Satisfactory Nausea & Vomiting: Negative Mental Status: Baseline Respiratory Status: Airway Patent Hydration Status: Satisfactory Anesthesia Complications: None
--- NOTE | 2023-09-28 21:41 | OPERATIVE REPORT ---
Operative Report - General Procedure Date: 09/28/23 Planned Procedure: Hysteroscopy with myosure to remove polyp Pre-Op Diagnosis: endometrial polyp Procedure Performed: hysteroscopy with Myosure to remove polyp Post Op Diagnosis: endometrial polyp - Procedure Note Primary Surgeon: Nikki Yin MD Anesthesia Provider: Omkar Douglas CRNA Anesthesia Technique: General LMA Pathology: endometrial curetting. endocervical curettings. IV Fluids (mL): 1,000 Estimated Blood Loss (mL): 75 Urine Output (mL): 0 Indications: postmenopausal bleeding. ultrasound showed a polyp in her uterine cavity. I recommended she come in for removal so she is here today. Findings: large uterus due to fibroids, retroverted. cavity with a large polyp arising from the fundus. cervix appeared normal. dilated easily. vagina with small opening. Complications: none - Other Other Information/Narrative: Patient was brought to the OR where LMA anesthesia was given. Legs in Kirill stirrups. prepped and draped in normal sterile fashion. Exam under anesthesia done. Speculum placed carefully into her small vaginal opening. Cervix identified and grasped with a tenaculum. ECC done. dilated to allow hysteroscope to pass. This was placed and saline was used as a distending medium. large polyp in cavity. Myosure Reach used to remove it. The cavity was so deep that the instrument could not reach all of the way to the top. I turned around the camera to get more depth. Still could not reach all the way to the top. A small amount of the polyp was left behind. There was a lot of fluid that escaped onto the floor and there was also an issue with deficit calculation. I used 4000 cc of fluid, there was 2500 or so in the collection bag but the deficit read 2700. Plus there was alot on the floor. I believe that the deficit was about 500 cc, but its hard to know exactly. After all the instruments were removed, we were about to take her legs down out of the stirrups and there was significant bleeding. I had unscrubbed but scrubbed again, put on new gown and gloves and did uterine massage. I then c arefully examined her vagina to be sure there was no laceration from the speculum. I had looked when I was taking the instruments out and again, there were no lacerations seen. I wiped away clot from the cervix and there was not more bleeding. I watched for another few minutes. There was no significant bleeding. I performed uterine massage again and it was firmer and smaller. There was no further significant bleeding. Patient was taken out of stirrups and awakened and then brought to the recovery room in stable condition.
== END 2023-09-28 10:34 | disposition home or self-care (01) ==
LOC: SDS 10:33
PROVIDERS: ATTEND Obstetrics & Gynecology
PROC: 0U598ZZ Destruction of Uterus, Via Natural or Artificial Opening Endoscopic (ICD-10-PCS; principal; 2023-09-28 12:00)
DX: N95.0 Postmenopausal bleeding (principal); N84.0 Polyp of corpus uteri; R73.02 Impaired glucose tolerance (oral); E66.9 Obesity, unspecified; Z68.35 Body mass index [BMI] 35.0-35.9, adult; D25.9 Leiomyoma of uterus, unspecified; N99.820 Postprocedural hemorrhage of a genitourinary system organ or structure following a genitourinary system procedure
CPT/HCPCS: 36415; 58558; 80053; 85025; J0131; J3490; J7120